=== PATIENT | female | born 1990 | race Caucasian/White ===

== ENCOUNTER 2017-10-15 13:57 | Outpatient (CLI) | payer OTHER ==
[2017-10-15 15:39] LABS: UR BACTERIA FEW /HPF (NONE SEEN); UR RBC 1 /HPF (0-5); UR SQUAMOUS EPITHELIAL CELL FEW /HPF (FEW); UR WBC 3 /HPF (0-5)
[2017-10-15 16:08] LABS: ADD UMIC NO; UR ASCORBIC ACID NEGATIVE (NEGATIVE); UR BILIRUBIN (Dip) NEGATIVE (NEGATIVE); UR BLOOD (Dip) NEGATIVE (NEGATIVE); UR CLARITY CLEAR (CLEAR); UR COLOR STRAW (YELLOW); UR GLUCOSE (Dip) NEGATIVE (NEGATIVE); UR KETONES (Dip) NEGATIVE (NEGATIVE); UR LEUKOCYTE ESTERASE (Dip) NEGATIVE Leu/ul (NEGATIVE); UR NITRITE (Dip) NEGATIVE (NEGATIVE); UR SPECIFIC GRAVITY (Dip) 1.009 (1.003-1.030); UR TOTAL PROTEIN (Dip) NEGATIVE (NEGATIVE); UR UROBILINOGEN (Dip) NEGATIVE (NEGATIVE)
[2017-10-15] MEDS: AL HYDROX/MG HYDROX/SIMETH 30 ML CUP PO (16:09)
[2017-10-15] MEDS: FAMOTIDINE 20 MG TAB PO (16:10)
[2017-10-15 16:33] LABS: ADD MAN DIFF? NO
[2017-10-15 16:35] LABS: WHITE BLOOD COUNT 7.2 10^3/ul (4.8-10.8)
[2017-10-15 16:35] LABS: BASOPHILS % 0.1 % (0.0-2.0); EOSINOPHILS # 0.1 10^3/ul (0.0-0.5); EOSINOPHILS % 0.7 % (0.0-7.0); HEMATOCRIT 30.6 % (37.0-47.0); HEMOGLOBIN 10.1 g/dl (12.0-16.0); LYMPHOCYTES # 1.7 10^3/ul (0.8-2.9); LYMPHOCYTES % 23.3 % (15.0-51.0); MEAN CORPUSCULAR HEMOGLOBIN 29.4 pg (29.0-33.0); MEAN CORPUSCULAR VOLUME 89.2 fl (82.0-101.0); MEAN PLATELET VOLUME 11.5 fl (7.4-10.4); MONOCYTE # 0.5 10^3/ul (0.3-0.9); MONOCYTES % 7.5 % (0.0-11.0); NEUTROPHIL # 4.9 10^3/ul (1.6-7.5); NEUTROPHILS % 67.6 % (39.0-77.0); PLATELET COUNT 178 10^3/UL (140-415); RED BLOOD COUNT 3.43 10^6/ul (4.20-5.40); RED CELL DISTRIBUTION WIDTH 13.5 % (11.5-14.5)
[2017-10-15 16:53] LABS: ALANINE AMINOTRANSFERASE 32 IU/L (13-69); ALBUMIN 3.4 g/dl (3.3-4.9); ALBUMIN/GLOBULIN RATIO 1.17; ALKALINE PHOSPHATASE 217 IU/L (42-121); AMYLASE 62 U/L (11-123); ANION GAP 12 (8-16); ASPARTATE AMINO TRANSFERASE 28 IU/L (15-46); BILIRUBIN,INDIRECT 0.3 mg/dl (0-1.1); BILIRUBIN,TOTAL 0.3 mg/dl (0.2-1.3); BLOOD UREA NITROGEN 8 mg/dl (7-20); CALCIUM 9.1 mg/dl (8.4-10.2); CARBON DIOXIDE 21 mmol/L (21-31); CHLORIDE 108 mmol/L (97-110); CREATININE 0.68 mg/dl (0.44-1.00); GLUCOSE 81 mg/dl (70-220); LIPASE 137 U/L (23-300); POTASSIUM 4.2 mmol/L (3.5-5.1); SODIUM 137 mmol/L (135-144); TOTAL PROTEIN 6.3 g/dl (6.1-8.1)
== END 2017-10-15 18:23 | disposition home or self-care (01) ==
LOC: OBT 13:57 → L-D 13:58 → OBT 18:23
DX: O26.893 Other specified pregnancy related conditions, third trimester (principal); R10.11 Right upper quadrant pain; K21.9 Gastro-esophageal reflux disease without esophagitis; Z3A.37 37 weeks gestation of pregnancy
CPT/HCPCS: 76705; 80053; 81003; 82150; 83690; 85025

== ENCOUNTER 2017-11-01 10:45 | Inpatient (IN) | payer OTHER ==
[2017-11-01] MEDS ORDERED: METHYLERGONOVINE 0.2 MG INJ IM (14:30)
[2017-11-01] MEDS ORDERED: OXYCODONE/ACETAMINOPHEN (5/325) TAB PO (14:30)
[2017-11-01] MEDS ORDERED: CARBOPROST 250 MCG INJ IM (14:30)
[2017-11-01] MEDS ORDERED: IBUPROFEN 600 MG TAB PO (14:30)
[2017-11-01] MEDS ORDERED: LIDOCAINE 1% (MPF) 30 ML INJ INJ (14:30)
[2017-11-01] MEDS ORDERED: OXYTOCIN 30 UNITS/LR 500 ML IV ×2 (14:30)
[2017-11-01 14:39] LABS: ADD MAN DIFF? NO
[2017-11-01 14:43] LABS: WHITE BLOOD COUNT 8.3 10^3/ul (4.8-10.8)
[2017-11-01 14:43] LABS: BASOPHILS % 0.2 % (0.0-2.0); EOSINOPHILS % 0.4 % (0.0-7.0); HEMATOCRIT 32.7 % (37.0-47.0); HEMOGLOBIN 10.6 g/dl (12.0-16.0); LYMPHOCYTES # 1.9 10^3/ul (0.8-2.9); MEAN CORPUSCULAR HEMOGLOBIN 28.3 pg (29.0-33.0); MEAN CORPUSCULAR HGB CONC 32.4 g/dl (32.0-37.0); MEAN CORPUSCULAR VOLUME 87.4 fl (82.0-101.0); MEAN PLATELET VOLUME 12.2 fl (7.4-10.4); MONOCYTE # 0.6 10^3/ul (0.3-0.9); MONOCYTES % 7.6 % (0.0-11.0); NEUTROPHIL # 5.7 10^3/ul (1.6-7.5); NEUTROPHILS % 68.2 % (39.0-77.0); PLATELET COUNT 179 10^3/UL (140-415); RED BLOOD COUNT 3.74 10^6/ul (4.20-5.40)
[2017-11-01] MEDS: LACTATED RINGER'S 1,000 ML IV* ×3 (14:45→23:28)
[2017-11-01 15:04] LABS: INR 0.81; PROTIME 11.2 Sec (11.9-14.9); PT RATIO 0.9
[2017-11-01 15:05] LABS: PARTIAL THROMBOPLASTIN TIME 30.7 Sec (25.0-35.0)
[2017-11-01 19:19] LABS: RAPID PLASMA REAGIN NONREACTIVE (NR)
[2017-11-01] MEDS: BUTORPHANOL 2 MG INJ IV (21:57)
[2017-11-01] MEDS ORDERED: BUTORPHANOL 1 MG INJ IV (22:00)
[2017-11-02] MEDS ORDERED: FENTAnyl 2MCG/ML-ROPIV 0.2% 100 ML (00:16)
[2017-11-02] MEDS: LACTATED RINGER'S 1,000 ML IV* ×2 (00:23→07:51)
[2017-11-02] MEDS ORDERED: EPHEDrine SULFATE 50 MG/5 ML SYG IV (00:30)
[2017-11-02] MEDS ORDERED: NALOXONE (0.4 MG/ML) INJ IV (00:30)
[2017-11-02] MEDS ORDERED: ONDANSETRON 4 MG INJ IV ×2 (00:30→16:00)
[2017-11-02] MEDS ORDERED: DIPHENHYDRAMINE 50 MG INJ IV (00:30)
[2017-11-02] MEDS: OXYTOCIN 30 UNITS/LR 500 ML IV ×3 (03:52→16:46)
[2017-11-02 07:07] LABS: HEPATITIS B SURFACE ANTIGEN NEGATIVE (NEGATIVE)
[2017-11-02] MEDS: FENTAnyl 2MCG/ML-ROPIV 0.2% 100 ML BAG EPI (09:34)
[2017-11-02] MEDS: MISOPROSTOL 200 MCG TAB PR (13:27)
[2017-11-02] MEDS ORDERED: MISOPROSTOL 200 MCG TAB PR (16:00)
[2017-11-02] MEDS ORDERED: ZOLPIDEM 5 MG TAB PO (16:00)
[2017-11-02] MEDS ORDERED: NACL 0.9% 3 ML SYG IV (16:00)
[2017-11-02] MEDS ORDERED: OXYTOCIN 30 UNITS/LR 500 ML IV (16:00)
[2017-11-02] MEDS ORDERED: METHYLERGONOVINE 0.2 MG TAB PO (16:00)
[2017-11-02] MEDS ORDERED: CARBOPROST 250 MCG INJ IM (16:00)
[2017-11-02] MEDS ORDERED: DIPHENHYDRAMINE 25 MG CAP PO (16:00)
[2017-11-02] MEDS ORDERED: METHYLERGONOVINE 0.2 MG INJ IM (16:00)
[2017-11-02] MEDS ORDERED: HYDROCODONE/APAP (5/325) TAB PO (16:00)
[2017-11-02] MEDS: IBUPROFEN 600 MG TAB PO (17:34)
[2017-11-02] MEDS: SENNA/DOCUSATE NA (8.6MG/50MG) TAB PO (22:01)
[2017-11-03] MEDS: IBUPROFEN 600 MG TAB PO ×5 (00:36→23:59)
[2017-11-03 09:09] LABS: HEMATOCRIT 25.3 % (37.0-47.0); HEMOGLOBIN 8.2 g/dl (12.0-16.0)
[2017-11-03] MEDS: SENNA/DOCUSATE NA (8.6MG/50MG) TAB PO ×2 (10:16→21:00)
[2017-11-03] MEDS: LANOLIN 7 GM TUBE TOP (20:27)
[2017-11-04] MEDS: IBUPROFEN 600 MG TAB PO ×2 (05:44→12:09)
[2017-11-04] MEDS: MEASLES,MUMPS,RUBELLA VACCINE INJ SC* (09:00)
[2017-11-04] MEDS: VARICELLA VACCINE LIVE/PF 1,350 UNIT/0.5 ML ML SC* (09:00)
[2017-11-04] MEDS: SENNA/DOCUSATE NA (8.6MG/50MG) TAB PO (10:13)
[2017-11-04] MEDS: DIPHTH/TET/ACEL PERTUSS (ADULT) 0.5 ML VIAL IM* (12:03)
== END 2017-11-04 18:13 | disposition home or self-care (01) | DRG 775 ==
LOC: OBT 10:45 → L-D 10:45 → PP1 11-02 15:55 → OBT 12:14 → L-D 12:14
PROVIDERS: Obstetrics & Gynecology
PROC: 10E0XZZ Delivery of Products of Conception, External Approach (ICD-10-PCS; principal; 2017-11-01)
PROC: 0HQ9XZZ Repair Perineum Skin, External Approach (ICD-10-PCS; 2017-11-01)
DX: O70.0 First degree perineal laceration during delivery (principal); Z3A.39 39 weeks gestation of pregnancy; Z37.0 Single live birth
CPT/HCPCS: 62319; 76815; 76818; 85014; 85018; 85025; 85610; 85730; 86592; 86850; 86900; 86901; 87340